=== PATIENT | female | born 2005 | race Caucasian/White ===

== ENCOUNTER 2024-02-14 23:52 | Emergency (ER) | payer MEDICAID ==
[~2024-02-14] VITALS: Ht 157.5 cm; Wt 59.0 kg
[2024-02-15 00:24] VITALS: O2SAT 100
[2024-02-15 00:45] LABS: BASOPHILS % 1.2 % (0.0-2.0); EOSINOPHILS % 2.6 % (0.0-5.0); HEMATOCRIT. 41.1 % (36.0-48.0); HEMOGLOBIN. 13.2 g/dL (12.0-16.0); LYMPHOCYTES % 37.8 % (20.0-50.0); MEAN CORPUSCULAR HEMOGLOBIN 28.8 pg (28.0-32.0); MEAN CORPUSCULAR HGB CONC 32.1 g/dL (31.0-37.0); MEAN CORPUSCULAR VOLUME 89.6 fL (81.0-99.0); MEAN PLATELET VOLUME 10.3 fl (7.4-10.4); MONOCYTES % 11.3 % (2.0-8.0); NEUTROPHILS % 47.1 % (40.0-76.0); PLATELET 237 x1000/uL (130-400); RED BLOOD CELL COUNT 4.58 mill/uL (4.2-5.4); RED CELL DISTRIBUTION WIDTH 13.2 % (11.6-14.6); WHITE BLOOD COUNT 8.7 x1000/uL (4.5-11.0)
[2024-02-15 00:52] LABS: CHLORIDE 107 mEq/L (98-107); POTASSIUM 3.8 mEq/L (3.5-5.1); SODIUM 139 mEq/L (136-145)
[2024-02-15 00:53] LABS: CALCIUM 9.5 mg/dL (8.7-10.4); CARBON DIOXIDE 26 mEq/L (21-32)
[2024-02-15 00:58] LABS: CREATININE 0.7 mg/dL (0.6-1.0); GLUCOSE 99 mg/dL (70-105); UREA NITROGEN BLOOD 9 mg/dL (9-23)
[2024-02-15 01:00] LABS: ALANINE AMINOTRANSFERASE 10 IU/L (10-49); ALBUMIN 4.5 g/dL (3.2-4.8); ASPARTATE AMINOTRANSFERASE 17 IU/L (<34); BILIRUBIN DIRECT 0.1 mg/dL (<=3.0); BILIRUBIN TOTAL 0.4 mg/dL (0.1-1.0); PROTEIN TOTAL 7.4 g/dL (6.0-8.3)
[2024-02-15 01:41] LABS: CLARITY URINE CLEAR (CLEAR); COLOR URINE YELLOW (YELLOW); GLUCOSE URINE NEGATIVE (NEGATIVE); KETONES URINE NEGATIVE (NEGATIVE); LEUKOCYTE ESTERASE URINE NEGATIVE (NEGATIVE); NITRITE URINE NEGATIVE (NEGATIVE); OCCULT BLOOD URINE NEGATIVE (NEGATIVE); PH URINE 5.5 (4.5-8.0); PROTEIN URINE NEGATIVE (NEGATIVE); SPECIFIC GRAVITY URINE 1.028 (1.005-1.030); UROBILINOGEN URINE 0.2 E.U./dL (0.2-1.0)
[2024-02-15 01:51] LABS: HCG SCREEN NEGATIVE
[2024-02-15] MEDS ORDERED: NAPR500T7 MT (03:27)
[2024-02-15] MEDS ORDERED: LIDO700A30 TP (03:27)
[2024-02-15 04:10] VITALS: TEMP 36.61404; O2SAT 99
[2024-02-15] MEDS ORDERED: ACETAMINOPHEN 325MG TABLET PO NR (04:15)
[2024-02-15] MEDS ORDERED: KETOROLAC 30MG/ML VIAL IM NR (04:15)
[2024-02-15 04:16] VITALS: BP 104/71; PULSE 77; RESP 14
[2024-02-15] MEDS: KETOROLAC 30MG/ML VIAL IM ONE (04:16)
[2024-02-15 04:18] VITALS: TEMP 97.8
[2024-02-15] MEDS: ACETAMINOPHEN 325MG TABLET PO ONE (04:18)
[2024-02-15] MEDS: LIDOCAINE 5% PATCH TOP SCH (04:19)
== END 2024-02-15 04:29 | disposition home or self-care (01) ==
LOC: ER 02-15 00:02
DX: R10.9 Unspecified abdominal pain (principal)
CPT/HCPCS: 80076; 80048; 81003; 81025; 84703; 85025; 86850; 86900; 86901; 36415; 76705; 96372; 99285; J1885; Z7610